=== PATIENT | female | born 1955 | race Caucasian/White ===

== ENCOUNTER 2018-01-19 05:59 | Day surgery (SDC) | payer BC, OTHER ==
[2018-01-19] MEDS ORDERED: DIPRIVAN 200 MG/20 ML IV ONE (06:00)
[2018-01-19] MEDS ORDERED: Versed 2 MG/2 ML Injection IV ONE (06:00)
[2018-01-19] MEDS ORDERED: Lactated Ringers 1,000 ML IV SCH (06:30)
[2018-01-19 09:59] VITALS: O2SAT 100
[2018-01-19 10:06] VITALS: BP 125/57; PULSE 52
--- NOTE | 2018-01-19 14:43 | OP ---
SURGERY DATE/TIME: 01/19/2018 0758 PREOPERATIVE DIAGNOSIS: History of tubular adenoma and rectal bleeding. POSTOPERATIVE DIAGNOSIS: Melanosis coli otherwise normal colon. PROCEDURE: Colonoscopy. SURGEON: Dr. Mcgee. ANESTHESIA: MAC. Medications given by anesthesia department. HISTORY: The patient is a 62 year-old white female who presents now with complaints of intermittent rectal bleeding. She also reports she had tubular adenoma removed previously. The patient was felt the need to have endoscopic evaluation. She was appraised of the risks of the procedure including the risk of perforation, phlebitis, untoward reaction to medication, bleeding and missed lesions. The patient verbalized her understanding and desired to have the procedure performed. DESCRIPTION OF PROCEDURE: The patient was given the medications by the anesthesia department. She had continuous pulse oximetry, ECG monitoring, intermittent blood pressure monitoring and tidal CO2 monitoring during the examination. She was placed in the left lateral decubitus position. A digital rectal examination was performed and revealed normal anal sphincter tone and no masses. The flexible Olympus pediatric colonoscope was used to intubate the rectum. A view of the colon was developed sequentially to the cecum. Upon insertion and withdrawal, including a retroflex view in the rectum, was noted melanosis coli but no other mucosal lesions were encountered. The scope was removed from the patient who tolerated the procedure well and was sent back to OP recovery in good condition. The prep was noted to be fair to good.
== END 2018-01-19 09:40 | disposition home or self-care (01) ==
LOC: SDC 05:59
PROVIDERS: ATTEND Family Medicine
PROC: 0DJD8ZZ Inspection of Lower Intestinal Tract, Via Natural or Artificial Opening Endoscopic (ICD-10-PCS; principal; 2018-01-19)
DX: K63.89 Other specified diseases of intestine (principal); Z86.010 Personal history of colon polyps; K62.5 Hemorrhage of anus and rectum
CPT/HCPCS: J2250; J2704

== ENCOUNTER 2023-06-23 06:06 | Day surgery (SDC) | payer MEDICARE, OTHER ==
[2023-06-23 06:29] VITALS: RESP 16
[2023-06-23] MEDS ORDERED: Lactated Ringers 1,000 ML IV SCH (06:30)
[2023-06-23] MEDS ORDERED: Versed 2 MG/2 ML Injection ONE (07:28)
[2023-06-23] MEDS ORDERED: DIPRIVAN 200 MG/20 ML IV ONE (07:28)
[2023-06-23] MEDS ORDERED: Xylocaine-Mpf 2% 5 Ml Vial ONE (07:28)
[2023-06-23 08:12] VITALS: TEMP 96.9
[2023-06-23 08:29] VITALS: BP 105/53; PULSE 74; O2SAT 97
--- NOTE | 2023-06-24 08:34 | OP ---
SURGERY DATE/TIME: 06/23/2023 PREOPERATIVE DIAGNOSIS: Screening exam, history of colon polyps five years ago. POSTOPERATIVE DIAGNOSIS: Sigmoid diverticulosis otherwise normal colon. PROCEDURE: Colonoscopy. SURGEON: Dr. Mcgee. ANESTHESIA: Medications given by anesthesia department. HISTORY: The patient is a 68-year-old white female who had a colonoscopy five years ago at which time polyps were removed. The patient is now here for follow up for screening since that time. The patient is felt the need to have endoscopic evaluation. She was appraised of the risks of the procedure including the risk of perforation, phlebitis, untoward reaction to medication, bleeding and missed lesions. The patient verbalized her understanding and desired to have the procedure performed. DESCRIPTION OF PROCEDURE: The patient was given the medications by the anesthesia department. She had continuous pulse oximetry, ECG monitoring and intermittent blood pressure monitoring during the examination. She was placed in the left lateral decubitus position. A digital rectal examination was performed and revealed normal anal sphincter tone and no masses. The flexible Olympus pediatric colonoscope was used to intubate the rectum. A view of the colon was developed sequentially to the cecum. Upon insertion and withdrawal, including a retroflex view in the rectum was noted some moderate sigmoid diverticulosis otherwise no mucosal lesions were encountered. The scope was removed from the patient who tolerated the procedure well and was sent back to OP recovery in good condition. The prep was noted to be fair.
== END 2023-06-23 08:45 | disposition home or self-care (01) ==
LOC: SDC 06:06
PROVIDERS: ATTEND Family Medicine
DX: Z12.11 Encounter for screening for malignant neoplasm of colon (principal); Z09 Encounter for follow-up examination after completed treatment for conditions other than malignant neoplasm; Z86.010 Personal history of colon polyps; K57.30 Diverticulosis of large intestine without perforation or abscess without bleeding
CPT/HCPCS: 82947; G0121; J2250; J2704

== ENCOUNTER 2024-03-22 09:06 | Day surgery (SDC) | payer MEDICARE, OTHER ==
[2024-03-22] MEDS ORDERED: Lactated Ringers 1,000 ML IV ONE (09:35)
[2024-03-22] MEDS: Lactated Ringers 1,000 ML IV SCH (09:50)
--- NOTE | 2024-03-22 11:57 | HP ---
HISTORY AND PHYSICAL HISTORY OF PRESENT ILLNESS: The patient is a 69-year-old with dysphagia in mid and lower esophagus, food gets stuck increased recently. Last EGD years ago. PAST MEDICAL HISTORY: Hyperlipidemia, hypercalcemia in the past, restless leg syndrome. The patient had some hypoglycemia issues in the past. The patient has had DVT. HOME MEDICATIONS: Acyclovir, been on warfarin as well in the past. ALLERGIES: PENICILLIN. PAST SURGICAL HISTORY: Skin cancer excision right leg in the past, had colonoscopy in the past, cervical conization in the past, blepharoplasty in the past, had some Mohs surgeries, had some knee meniscus surgery in the past. SOCIAL HISTORY: No smoking. Occasional alcohol use. FAMILY HISTORY: Negative for esophageal cancer. Kidney stones, heart disease, thyroid disease, uterine cancer, breast cancer. REVIEW OF SYSTEMS: Twelve systems reviewed. Pertinent for as noted above. No chest pain or palpitations. Other systems negative or noncontributory as above and per preadmission questionnaire. PHYSICAL EXAMINATION: GENERAL: Height 5 feet 3 inches. BMI 28.52. No acute distress. HEENT: Sclerae nonicteric. Extraocular movements intact. NECK: No JVD. CHEST: Equal excursion. Nonlabored breathing. CARDIOVASCULAR: Regular rate and rhythm. ABDOMEN: Soft. EXTREMITIES: No cyanosis or edema. NEUROLOGIC: Alert, moving extremities symmetrically. PSYCHIATRIC: Appropriate mood and affect. SKIN: Dry. IMPRESSION: Dysphagia in mid and lower esophagus. Needs EGD, possible biopsy, possible dilatation. Risks of bleeding and infection, possibly requiring open procedure, risk of perforation possibly requiring transfer for stent placement possible, no improvement in swallowing possibly requiring other procedures, dilators or referral or upper GI studies. Possibly no area to dilate or more of a neurologic function or functional problem dilatation might not benefit. If dilatation performed and improved functioning, might need to be repeated again down the road. All of the above was explained but not limited to and the patient agreed to proceed. Will proceed with EGD, possible biopsy, possible dilatation as an outpatient under MAC anesthesia. Otherwise, continue medical management of hyperlipidemia, restless leg syndrome, heart disease.
[2024-03-22] MEDS ORDERED: DIPRIVAN 200 MG/20 ML IV ONE (12:42)
[2024-03-22 13:47] VITALS: RESP 16
[2024-03-22 13:55] VITALS: BP 128/62; PULSE 66; TEMP 97.6; O2SAT 94
--- NOTE | 2024-03-23 09:32 | OP ---
SURGERY DATE/TIME: 03/22/2024 5162 - [id number] PREOPERATIVE DIAGNOSIS: Dysphagia, lower esophagus. POSTOPERATIVE DIAGNOSES: 1) ASA Class III. 2) Symptomatic distal esophageal narrowing and spasm requiring dilatation. 3) Mild gastritis. PROCEDURES: 1) Esophagogastroduodenoscopy and cold biopsy of the antrum for H pylori. 2) Cold biopsy of distal and mid esophagus to evaluate for eosinophilic esophagitis. 3) Esophageal dilatation, distal esophagus (20 balloon dilator). SURGEON: Gabe Marie MD ANESTHESIA: MAC. ESTIMATED BLOOD LOSS: Minimal. INDICATIONS: As noted above. Consent was obtained. DESCRIPTION OF PROCEDURE AND FINDINGS: The patient was taken to the endoscopy room. MAC anesthesia was induced. After official time-out and no disagreement with planned procedure, gastroscope passed down the esophagus, down into the distal esophagus. There was just a slight Schatzki's ring in distal esophagus and narrowing and extensive spasm. As she was having problems with food sticking here, it was felt to be worthwhile to trial dilatation at the end of the procedure. The scope was able to be passed through here at that time. It was then passed through pink pylorus through the junction of the third and fourth portion of the duodenum. Duodenum was grossly unremarkable. Scope pulled back in the stomach. She had gastric erythema and some friability consistent with some minimal to mild gastritis. No evidence of any ulcers or obvious masses. Cold biopsy was taken to evaluate for H pylori. Good hemostasis noted. On retroflex, the GE junction snug against the scope. Scope straightened and again GE junction was about 40 cm. As mentioned, she did have symptomatic distal esophageal narrowing and spasm. It was felt this warrants dilatation. It was felt first she should be biopsied, and cold biopsy taken of the distal and mid esophagus to evaluate for eosinophilic esophagitis. Good hemostasis noted. Scope passed back down into the stomach. A 20 balloon catheter was carefully inserted. It was then pulled back up to the distal esophageal narrowing area where it was carefully inflated. First stage for 15 to 30 seconds, second stage for 15 to 30 seconds, final stage for 2 minutes, and left inflated for 2 minutes. The balloon catheter was then let down. The area was more widely patent in the area dilated. The balloon catheter and scope were then carefully withdrawn. There were no signs of any full-thickness issues or injury secondary to dilatation. Findings discussed with family and her friend out in the waiting area.
== END 2024-03-22 14:13 | disposition home or self-care (01) ==
LOC: SDC 09:06
PROVIDERS: ATTEND Surgery
DX: K22.2 Esophageal obstruction (principal); R13.10 Dysphagia, unspecified; Z80.3 Family history of malignant neoplasm of breast; Z80.8 Family history of malignant neoplasm of other organs or systems; K29.70 Gastritis, unspecified, without bleeding
CPT/HCPCS: C1726; J2704